=== PATIENT | male | born 1980 | race African-American/Black ===

== ENCOUNTER 2017-03-22 06:04 | Emergency (ER) | payer SELFPAY ==
[~2017-03-22] VITALS: Ht 175.3 cm; Wt 86.2 kg
[~2017-03-22 06:04] MED LIST: ALBUTEROL SULF8.5 GM INH; AZITHROMYCIN250 MG ORAL; NKM; PROMETHAZINE-C118 M1 ORAL
[2017-03-22 06:10] VITALS: BP 136/86
[2017-03-22] MEDS ORDERED: Tetracaine 0.5% Opth Soln ONE (06:28)
--- NOTE | 2017-03-22 06:29 | Emergency Room Report ---
History of Present Illness General Chief Complaint: Eye Problems Source: Patient Present Illness HPI Patient presents with a complaint of scratch sensation in the left eye Patient states that he was hit in the eye 2 days ago he had some mild pain to the eye itself that appear to have improved However this morning upon awaking he felt a scratch sensation in the lower aspect Denies any change in vision Denies any headache Initially after the injury he had some mild photophobia sensation None at this time Allergies: Coded Allergies: No Known Allergies (Unverified , 10/09/15) Patient History Past Medical History: see triage record Pertinent Family History: none Reviewed Nursing Documentation: PMH: Agreed, PSxH: Agreed Nursing Documentation-PMH Past Medical History: No Stated History Review of Systems All Other Systems: negative except mentioned in HPI Physical Exam Vital Signs Date Time Temp Pulse Resp B/P Pulse Ox O2 Delivery O2 Flow Rate FiO2 03/22/17 06:06 97.3 50 18 136/86 98 Room Air Sp02 EP Interpretation: reviewed, normal General Appearance: well appearing, no apparent distress Head: normocephalic, atraumatic Eyes: left eye other - Mild erythematous hue injected conjunctiva on the left. No hyphema, bilateral eye EOMI, bilateral eye PERRL ENT: normal pharynx, no angioedema Neck: full range of motion, supple Respiratory: lungs clear Cardiovascular #1: regular rate, rhythm, no edema Gastrointestinal: non tender, soft Musculoskeletal: normal inspection Neurologic: alert, oriented x3, responsive Skin: normal color, no rash Lymphatic: no adenopathy Medical Decision Making Diagnostic Impression: Primary Impression: Corneal abrasion ER Course Patient had tetracaine along with fluorescein staining performed on the eye Does reveal a small abrasion likely from scratch approximately 5:00 region There was some uptake Otherwise no obvious dendritic lesions Patient has done significantly better implying superficial pathology Patient was placed on antibiotics and will have close outpatient followup Last Vital Signs Date Time Temp Pulse Resp B/P Pulse Ox O2 Delivery O2 Flow Rate FiO2 03/22/17 06:06 97.3 50 18 136/86 98 Room Air Status: improved Disposition: HOME, SELF-CARE Condition: Improved Scripts Ibuprofen* (MOTRIN*) 600 Mg Tablet 600 MG ORAL Q8H Y for For Pain, #20 TAB 0 Refills Prov: IFTIKHAR TAYLOR D.O. 03/22/17 Gentamicin Sulfate* (GENTAMICIN SULFATE*) 3.5 Gm Oint...g. 3.5 GM OP TID for 7 Days, GM Prov: IFTIKHAR TAYLOR D.O. 03/22/17 Additional Instructions: Patient is provided with the discharge instructions notified to follow up with primary doctor in the next 2-3 days otherwise return to the er with any worsening symptoms. Please note that this report is being documented using [employer] technology. This can lead to erroneous entry secondary to incorrect interpretation by the dictating instrument. IFTIKHAR TAYLOR D.O. Mar 22, 2017 06:29
[2017-03-22] MEDS ORDERED: Fluorescein Strips OP ONE (06:30)
[2017-03-22] MEDS ORDERED: Proparacaine 0.5% Opth Soln 15ml BOTH EYES ONE (06:30)
[2017-03-22] MEDS ORDERED: Tetracaine 0.5% Opth Soln LEFT EYE ONE (06:30)
[2017-03-22] MEDS ORDERED: GENTAMICIN SUL3.5 GM OP (06:39)
[2017-03-22] MEDS ORDERED: IBUPROFEN600 MG ORAL (06:39)
[2017-03-22 06:43] VITALS: BP 136/86
== END 2017-03-22 06:45 | disposition home or self-care (01) ==
LOC: EMR 06:29
DX: S05.02XA Injury of conjunctiva and corneal abrasion without foreign body, left eye, initial encounter (principal); W22.8XXA Striking against or struck by other objects, initial encounter; Y92.89 Other specified places as the place of occurrence of the external cause
CPT/HCPCS: 99282

== ENCOUNTER 2018-06-21 12:53 | Emergency (ER) | payer OTHER ==
[~2018-06-21] VITALS: Ht 175.3 cm; Wt 98.9 kg
[~2018-06-21 12:53] MED LIST changes: +GENTAMICIN SUL3.5 GM OP; +IBUPROFEN600 MG ORAL
--- NOTE | 2018-06-21 13:56 | Emergency Room Report ---
History of Present Illness General Chief Complaint: Upper Extremity Injury Source: Patient Present Illness HPI 37-year-old male presents to the emergency department complaining of 4 out of 10 in severity pain localized to the left hand sustained last week while boxing practice. Patient reports that he has had symptoms similar before and usually get better after rest and ice however his symptoms have not improved. Patient reports pain is exacerbated with moving his fingers to make a fist. Asked is only relieving factor. Patient reports she took some Vicodin 5am this morning which reduced his pain to from 8/10 in severity to 4 out of 10 in severity. Patient denies open wounds or bleeding. Denies numbness tingling or loss of sensation or gross motor movements of the extremities, incontinence of bowel or bladder. Denies CP, Palpitations, LOC, AMS, dizziness, Changes in Vision, weakness or a sudden severe headache. Allergies: Coded Allergies: No Known Allergies (Unverified , 10/09/15) Patient History Past Medical History: see triage record Past Surgical History: none Pertinent Family History: none Reviewed Nursing Documentation: PMH: Agreed; PSxH: Agreed Nursing Documentation-PMH Past Medical History: No Stated History Review of Systems All Other Systems: negative except mentioned in HPI Physical Exam Vital Signs Date Time Temp Pulse Resp B/P (MAP) Pulse Ox O2 Delivery O2 Flow Rate FiO2 06/21/18 12:58 98.1 68 21 136/57 98 Room Air Sp02 EP Interpretation: reviewed, normal General Appearance: no apparent distress, alert, GCS 15, non-toxic Head: normocephalic, atraumatic Eyes: bilateral eye normal inspection, bilateral eye PERRL ENT: hearing grossly normal, normal voice Neck: full range of motion Respiratory: lungs clear, normal breath sounds, speaking full sentences Cardiovascular #1: regular rate, rhythm, normal capillary refill Musculoskeletal: back normal, gait/station normal, normal range of motion, tender - TTP to the mid-dorsal left hand, Stiffness with ROM, mild swelling noted as well. no snuff box ttp. pt. is NVI. Neurologic: alert, oriented x3, responsive, motor strength/tone normal, sensory intact, normal gait, speech normal, grossly normal Psychiatric: judgement/insight normal Skin: normal color, no rash, warm/dry, well hydrated Medical Decision Making PA Attestation Dr. unger is my supervising Physician whom patient management has been discussed with. Diagnostic Impression: Primary Impression: Contusion of hand, left Qualified Codes: S60.222A - Contusion of left hand, initial encounter Additional Impression: Hand pain, left ER Course 37-year-old male presents to the emergency department complaining of 4 out of 10 in severity pain localized to the left hand sustained last week while boxing practice. Patient reports that he has had symptoms similar before and usually get better after rest and ice however his symptoms have not improved. Patient reports pain is exacerbated with moving his fingers to make a fist. Asked is only relieving factor. Patient reports she took some Vicodin 5am this morning which reduced his pain to from 8/10 in severity to 4 out of 10 in severity. Patient denies open wounds or bleeding. Denies numbness tingling or loss of sensation or gross motor movements of the extremities, incontinence of bowel or bladder. Denies CP, Palpitations, LOC, AMS, dizziness, Changes in Vision, weakness or a sudden severe headache. Ddx considered but are not limited to Fracture, dislocation, contusion, Sprain/ Strain/Spasm. Vital signs: are WNL, pt. is afebrile H&PE are most consistent with musculoskeletal injury will perform imaging to r/ o fractures/dislocations. ORDERS: - X-ray Left Hand 3 views - negative for fx, Dislocation, or significant soft tissue injury, per preliminary read in ED, and signed by MANPREET Elizabeth , my supervising physician has reviewed, and agrees with my interpretation. ED INTERVENTIONS: Volar hand and wrist Splint applied to the left hand by video game repair technician. Pt. remains neurovascularly intact. -Tylenol PO DISCHARGE: At this time pt. is stable for d/c to home. Will provide printed patient care instructions, and any necessary prescriptions. Care plan and follow up instructions have been discussed with the patient prior to discharge. Other X-Ray Diagnostic Results Other X-Ray Diagnostic Results : X-Ray ordered: Left hand # of Views/Limited Vs Complete: 3 View Indication: Pain EP Interpretation: Yes MANPREET Xray: Interpretation reviewed, by supervising MD, and agrees with findings. Interpretation: no dislocation, no soft tissue swelling, no fractures Impression: No acute disease Electronically Signed by: Mony Elizabeth PA-C Last Vital Signs Date Time Temp Pulse Resp B/P (MAP) Pulse Ox O2 Delivery O2 Flow Rate FiO2 06/21/18 12:58 98.1 68 21 136/57 98 Room Air Disposition: HOME, SELF-CARE Condition: Stable Scripts Ibuprofen* (MOTRIN*) 600 Mg Tablet 600 MG ORAL THREE TIMES A DAY, #20 TAB 0 Refills Prov: Mony Elizabeth 06/21/18 Referrals: [facility],REFERR[facility] (PCP) Patient Instructions: Hand Contusion, [id number] Additional Instructions: Take medications as directed. Follow up with an [employer] ATTENDANT in 3-5 days, even if your symptoms have resolved. If symptoms persist further imaging and evaluation may be required at the discretion of your PCP or Ortho Specialist. --Please review list of primary care clinics, if you do not already have a primary care provider who can give you an Orthopedic Referral. Return sooner to ED if new symptoms occur, or current symptoms become worse. - Please note that this Emergency Department Report was dictated using [employer] technology software, occasionally this can lead to erroneous entry secondary to interpretation by the dictation equipment. Mony Elizabeth Jun 21, 2018 13:56
[2018-06-21 14:09] VITALS: BP 123/61
--- NOTE | 2018-06-21 14:24 | Diagnostic Imaging Report ---
EXAM: XR Left Hand Complete, 3 or More Views CLINICAL HISTORY: PAIN TECHNIQUE: Frontal, lateral and oblique views of the left hand. COMPARISON: No relevant prior studies available. FINDINGS: Bones/joints: Chronic deformity of the right fifth metacarpal. No acute fracture. No dislocation. Soft tissues: Unremarkable. No radiopaque foreign body. 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 No acute fracture. No dislocation.
[2018-06-21] MEDS ORDERED: IBUPROFEN600 MG ORAL (14:42)
[2018-06-21] MEDS ORDERED: Acetaminophen 500mg (ES) tab ORAL ONE (14:45)
[2018-06-21 14:51] VITALS: BP 123/61
== END 2018-06-21 14:51 | disposition home or self-care (01) ==
LOC: EMR 13:25
DX: S60.222A Contusion of left hand, initial encounter (principal); W51.XXXA Accidental striking against or bumped into by another person, initial encounter; Y93.71 Activity, boxing; Y92.89 Other specified places as the place of occurrence of the external cause
CPT/HCPCS: 29125; 99283

== ENCOUNTER 2019-03-31 09:38 | Emergency (ER) | payer OTHER ==
[~2019-03-31] VITALS: Ht 175.3 cm; Wt 97.5 kg
--- NOTE | 2019-03-31 09:52 | Emergency Room Report ---
History of Present Illness General Chief Complaint: Upper Extremity Injury Source: Patient Present Illness HPI Disclaimer: Please note that this report is being documented using [employer] technology. This can lead to erroneous entry secondary to incorrect interpretation by the dictating instrument. HPI: 38-year-old [id number] male presents for evaluation of right thumb pain. 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 He cannot recall specific injury though he was sparring recently. He has been keeping it elevated but has not taken any medications. No prior history of gout, pseudogout. Cannot recall any bites, scratches, skin breakdown. Denies any fevers, chills. No pain in the wrist on flexion or extension. Denies numbness or tingling. Otherwise in his usual state of health and denies any fevers, chills, chest pain, shortness of breath, abdominal pain, vomiting. PMH: Previous fractures PSH: Denies Allergies: Denies Social Hx: Denies drug, alcohol or tobacco use Allergies: Coded Allergies: No Known Allergies (Unverified , 10/09/15) Nursing Documentation-PMH Past Medical History: No Stated History Review of Systems All Other Systems: negative except mentioned in HPI Physical Exam Vital Signs Date Time Temp Pulse Resp B/P (MAP) Pulse Ox O2 Delivery O2 Flow Rate FiO2 03/31/19 09:41 98.4 61 16 136/87 (103) 98 Room Air General: Awake and alert, no acute distress HEENT: NC/AT. EOMI. Resp: Normal work of breathing. Skin: Intact. No abrasions, laceration or rash over the exposed skin. There is some mild edema and erythema around the right thumb at the MCPJ extending up to the IPJ MSK: Normal tone and bulk. Moving all extremities. Tenderness, erythema and swelling around the ulnar aspect of the MCP J of the right thumb. No tenderness over the snuffbox. Tenderness extends up to the interphalangeal joint of the right thumb over the ulnar aspect only. Difficulty with flexion extension. Sensation is intact to light touch over the radial and ulnar aspect. There is pain with radial deviation of the thumb. The remainder of the digits are atraumatic, no edema, no erythema, full flexion and extension. Sensation otherwise intact over the volar and dorsal aspect of the hand. No tenderness in the wrist, no edema. Able to flex, extend, pronate, supinate, ulnar and radially deviate. 2+ radial pulses. Cap refill less than 2 seconds Neuro: Awake and alert. Mentating appropriately. Medical Decision Making Diagnostic Impression: Primary Impression: Hand pain Additional Impression: Tendon injury ER Course 38-year-old male presents for evaluation of left thumb pain and swelling. May be a occult fracture of the patient is a boxer with repeated trauma. May also be gout, pseudogout, tendon injury, septic joint however my suspicion for these is less than for acute fracture. Will obtain x-rays of the hand and give ibuprofen for pain. Laboratory Tests Test 03/31/19 11:05 White Blood Count 8.4 K/UL (4.8-10.8) Red Blood Count 4.99 M/UL (4.70-6.10) Hemoglobin 15.4 G/DL (14.2-18.0) Hematocrit 46.5 % (42.0-52.0) Mean Corpuscular Volume 93 FL (80-99) Mean Corpuscular Hemoglobin 30.9 PG (27.0-31.0) Mean Corpuscular Hemoglobin Concent 33.2 G/DL (32.0-36.0) Red Cell Distribution Width 11.2 % (11.6-14.8) L Platelet Count 202 K/UL (150-450) Mean Platelet Volume 8.7 FL (6.5-10.1) Neutrophils (%) (Auto) 49.5 % (45.0-75.0) Lymphocytes (%) (Auto) 35.8 % (20.0-45.0) Monocytes (%) (Auto) 11.8 % (1.0-10.0) H Eosinophils (%) (Auto) 1.9 % (0.0-3.0) Basophils (%) (Auto) 1.0 % (0.0-2.0) Sodium Level 143 MMOL/L (136-145) Potassium Level 3.6 MMOL/L (3.5-5.1) Chloride Level 105 MMOL/L (98-107) Carbon Dioxide Level 27 MMOL/L (21-32) Anion Gap 11 mmol/L (5-15) Blood Urea Nitrogen 14 mg/dL (7-18) Creatinine 1.4 MG/DL (0.55-1.30) H Estimate Glomerular Filtration Rate > 60 mL/min (>60) Glucose Level 98 MG/DL (74-106) Uric Acid 5.3 MG/DL (2.6-7.2) Calcium Level 10.1 MG/DL (8.5-10.1) Reevaluation Time: 12:18 Last Vital Signs Date Time Temp Pulse Resp B/P (MAP) Pulse Ox O2 Delivery O2 Flow Rate FiO2 03/31/19 09:41 98.4 61 16 136/87 (103) 98 Room Air Reevaluation Impression No obvious fracture on x-ray. Lab work otherwise unremarkable. Uric acid within normal limits. At this time, I do believe the patient likely has a tendon injury of the ulnar collateral ligament on the thumb, skiers injury. The entire joint is nontender and therefore I have less suspicious for septic joints. Overall, the patient is stable with normal white count, afebrile and repeatable tenderness over the ulnar aspect of the thumb at the MCP J and the IPJ more consistent with a tendon injury. He will be placed in a thumb spica splint and started on NSAIDs as well as a short course of antibiotics for possible cellulitis. He will be referred to orthopedic surgery. Discussed reasons to return to the emergency department. He understands and agrees with this treatment plan. Disposition: HOME, SELF-CARE Condition: Stable Scripts Cephalexin* (KEFLEX*) 500 Mg Capsule 500 MG ORAL EVERY 12 HOURS, #14 CAP 0 Refills Prov: Piotr Glass MD 03/31/19 Ibuprofen* (MOTRIN*) 600 Mg Tablet 600 MG ORAL Q6H PRN for For Pain, #60 TAB 0 Refills Prov: Piotr Glass MD 03/31/19 Piotr Glass MD Mar 31, 2019 09:52
[2019-03-31 09:59] VITALS: BP 136/87
--- NOTE | 2019-03-31 10:00 | NUR ---
ED Nurse Note:pt. c/o right thumb pain for 2 days no injury reported
[2019-03-31 11:28] LABS: EOSINOPHILS % (AUTO) 1.9 % (0.0-3.0); HEMATOCRIT 46.5 % (42.0-52.0); HEMOGLOBIN 15.4 G/DL (14.2-18.0); LYMPHOCYTES % (AUTO) 35.8 % (20.0-45.0); MEAN CORPUSCULAR VOLUME 93 FL (80-99); MONOCYTES % (AUTO) 11.8 % (1.0-10.0); NEUTROPHILS % (AUTO) 49.5 % (45.0-75.0); PLATELET COUNT 202 K/UL (150-450); RED BLOOD COUNT 4.99 M/UL (4.70-6.10); RED CELL DISTRIBUTION WIDTH 11.2 % (11.6-14.8); WHITE BLOOD COUNT 8.4 K/UL (4.8-10.8)
[2019-03-31 11:41] LABS: ANION GAP 11 mmol/L (5-15); BLOOD UREA NITROGEN 14 mg/dL (7-18); CALCIUM 10.1 MG/DL (8.5-10.1); CARBON DIOXIDE 27 MMOL/L (21-32); CHLORIDE 105 MMOL/L (98-107); CREATININE 1.4 MG/DL (0.55-1.30); POTASSIUM 3.6 MMOL/L (3.5-5.1); SODIUM 143 MMOL/L (136-145)
--- NOTE | 2019-03-31 12:15 | Diagnostic Imaging Report ---
Indication: Injury and pain Technique: 3 views right hand Comparison: none Findings: No acute fractures. No dislocations. The joint spaces are preserved. Impression: Negative
[2019-03-31] MEDS ORDERED: CEPHALEXIN500 MG ORAL (12:16)
[2019-03-31] MEDS ORDERED: IBUPROFEN600 MG ORAL (12:16)
[2019-03-31 12:24] VITALS: BP 136/87
--- NOTE | 2019-03-31 12:31 | NUR ---
ER DISCHARGE NOTE:splint placed on right hand Patient is cleared to be discharged per ERMD, pt is aox4, on room air, with stable vital signs. pt was given dc and prescription instructions, pt was able to verbalize understanding, pt is able to ambulate with steady gait. pt took all belongings.
== END 2019-03-31 12:32 | disposition home or self-care (01) ==
LOC: EMR 09:57
DX: S66.202A Unspecified injury of extensor muscle, fascia and tendon of left thumb at wrist and hand level, initial encounter (principal); M79.641 Pain in right hand; X58.XXXA Exposure to other specified factors, initial encounter; Y92.9 Unspecified place or not applicable
CPT/HCPCS: 29125; 36415; 80048; 84550; 85025; 99283

== ENCOUNTER 2019-11-17 07:32 | Emergency (ER) | payer OTHER ==
[~2019-11-17] VITALS: Ht 175.3 cm; Wt 90.7 kg
[~2019-11-17 07:32] MED LIST changes: +CEPHALEXIN500 MG ORAL
[2019-11-17 08:00] VITALS: BP 129/78
[2019-11-17] MEDS ORDERED: CLOTRIMAZOLE15 GM TOPIC (08:00)
--- NOTE | 2019-11-17 08:04 | Emergency Room Report ---
History of Present Illness General Chief Complaint: Skin Rash/Abscess Source: Patient Present Illness HPI Disclaimer: Please note that this report is being documented using [employer] technology. This can lead to erroneous entry secondary to incorrect interpretation by the dictating instrument. HPI: 38-year-old male presents for evaluation of rash. He has been having an itchy and scaly rash around his groin for the past week. Denies pain just reports discomfort from itching. He walks a lot and has been applying hydrocortisone cream without significant improvement. Denies skin sloughing, weeping, vesicles. Denies any trauma to the area. Denies any bleeding from the meatus, urethral discharge, testicular pain or other symptoms at this time. Allergies: Coded Allergies: No Known Allergies (Unverified , 10/09/15) COVID-19 Screening Contact w/high risk pt: No Recent Travel to affected area: No Experienced COVID-19 symptoms?: No Nursing Documentation-PMH Past Medical History: No Stated History Review of Systems All Other Systems: negative except mentioned in HPI Physical Exam Vital Signs Date Time Temp Pulse Resp B/P (MAP) Pulse Ox O2 Delivery O2 Flow Rate FiO2 11/17/19 07:56 98.1 54 14 131/84 (100) 99 Room Air General: Awake and alert, no acute distress HEENT: NC/AT. EOMI. Resp: Normal work of breathing Skin: Intact. There is an erythematous, nonraised, nontender nonfluctuant rash around the patient's groin extending over the medial thighs. Raised and scaly borders. No skin breakdown. No bleeding. No purulence, no fluctuance, no vesicles. Negative Nikolsky. MSK: Normal tone and bulk. Moving all extremities. No obvious deformity. Neuro: Awake and alert. Mentating appropriately Medical Decision Making Diagnostic Impression: Primary Impression: Tinea cruris ER Course 38-year-old male presents for evaluation of 1 week worsening rash around the groin region. Differential includes was not limited to tinea infection, dermatitis, atopic dermatitis, folliculitis, cellulitis, abscess. Most consistent with a tinea cruris. Patient is been using hydrocortisone cream without improvement thus far. Will try clotrimazole cream topical for 1 month or if symptoms respond we will continue treatment for 1 week after symptoms are resolved. We discussed need for close monitoring and follow-up if symptoms fail to improve or suddenly worsen. Overall well-appearing and nontoxic. Do not believe he requires emergent labs or imaging at this time. He is instructed to return to the emergency department should his symptoms worsen or fail to improve. He understands and agrees to treatment plan will be discharged home. Last Vital Signs Date Time Temp Pulse Resp B/P (MAP) Pulse Ox O2 Delivery O2 Flow Rate FiO2 11/17/19 07:56 98.1 54 14 131/84 (100) 99 Room Air Disposition: HOME, SELF-CARE Condition: Stable Scripts Clotrimazole* (LOTRIMIN*) 15 Gm Cream..g. 1 APPLIC TOPIC TWICE A DAY for 28 Days, #60 GM Prov: Piotr Glass MD 11/17/19 Referrals: [facility],REFERR[facility] (PCP) [facility] Patient Instructions: Jock Itch Additional Instructions: Apply the medicated cream as instructed twice daily for 1 week after the rash resolves. If your symptoms fail to improve return to the emergency department for reevaluation. Piotr Glass MD Nov 17, 2019 08:04
[2019-11-17 08:10] VITALS: BP 127/88
== END 2019-11-17 08:10 | disposition home or self-care (01) ==
LOC: EMR 07:55
DX: B35.6 Tinea cruris (principal)
CPT/HCPCS: 99282

== ENCOUNTER 2020-01-18 02:46 | Emergency (ER) | payer OTHER ==
[~2020-01-18] VITALS: Ht 180.3 cm; Wt 72.6 kg
[~2020-01-18 02:46] MED LIST changes: +CLOTRIMAZOLE15 GM TOPIC
--- NOTE | 2020-01-18 02:57 | Emergency Room Report ---
History of Present Illness General Chief Complaint: Abdominal Pain Source: Patient Present Illness HPI Patient is a 39-year-old male denies any significant past medical history who presents to the ER complaining of abdominal pain. Patient states that he ate [employer] local at around 3 PM and went to sleep and woke up feeling generalized abdominal pain and bloating. Patient also complains of nonbilious nonbloody vomitus as well as nonbloody diarrhea. He denies anybody else being sick. He denies any fever or chills. He denies any chest pain or shortness of breath. Allergies: Coded Allergies: No Known Allergies (Unverified , 10/09/15) COVID-19 Screening Contact w/high risk pt: No Recent Travel to affected area: No Experienced COVID-19 symptoms?: No Patient History Social History: Reports: smoking; Denies: alcohol use, drug use Reviewed Nursing Documentation: PMH: Agreed; PSxH: Agreed Nursing Documentation-PMH Past Medical History: No Stated History Review of Systems All Other Systems: negative except mentioned in HPI Physical Exam Sp02 EP Interpretation: reviewed, normal General Appearance: no apparent distress, alert, GCS 15, non-toxic Head: normocephalic, atraumatic Eyes: bilateral eye normal inspection, bilateral eye PERRL ENT: hearing grossly normal, normal pharynx, no angioedema, normal voice Neck: full range of motion, supple/symm/no masses Respiratory: chest non-tender, lungs clear, normal breath sounds, speaking full sentences Cardiovascular #1: regular rate, rhythm, no edema Gastrointestinal: other - Periumbilical abdominal pain with no guarding or rebound Rectal: deferred Genitourinary: no CVA tenderness Musculoskeletal: normal range of motion, no calf tenderness Neurologic: alert, motor strength/tone normal, oriented x3, sensory intact, responsive, speech normal Psychiatric: no suicidal/homicidal ideation Skin: no rash Lymphatic: no adenopathy Medical Decision Making Diagnostic Impression: Primary Impression: Pancreatitis Additional Impressions: Acute renal failure Hypokalemia Leukocytosis Drug abuse ER Course Patient's vital signs are stable. Patient's labs demonstrate mild leukocytosis. Patient has elevated lipase. Patient's creatinine elevated to 1.6. Patient's potassium is 3.3. Patient's drug screen positive for amphetamines and THC. Patient given IV fluids, Zofran, Protonix and fentanyl. On reevaluation patient states that his symptoms have improved. Patient CT consistent with enteritis. Patient discharged with prescription for Zofran, tramadol and Pepcid. After discussing risks and benefits of further diagnostics , treatment plans, as well as indications for and risks of admission, the patient is agreeable to being discharged home. I have explained that their evaluation and treatment in the emergency department today is an important step towards them achieving better health but that their evaluation today is not intended to replace further evaluation and treatment by a physician in their local clinic. I have explained that while the current findings suggest no immediate life threatening emergency they will require further evaluation and treatment by a physician of their choice in their area. They understand that it will be necessary for them to review the final reports of their ED visit with their clinic physician. We have reviewed indications for return to the Emergency Department. I have explained that additional time may need to pass and/or additional testing as an outpatient may be necessary before a definitive diagnosis can be made. They tell me they are willing to follow up as instructed within the timeframe I recommend. They appear to understand what we discussed. Additionally they understand that if they are unable to be seen by an outpatient physician they are welcome, and in fact should, return to the Emergency Department for a repeat evaluation. The patient is stable at time of discharge. Laboratory Tests Test 01/18/20 03:14 White Blood Count 11.1 K/UL (4.8-10.8) H Red Blood Count 4.94 M/UL (4.70-6.10) Hemoglobin 15.4 G/DL (14.2-18.0) Hematocrit 47.7 % (42.0-52.0) Mean Corpuscular Volume 97 FL (80-99) Mean Corpuscular Hemoglobin 31.2 PG (27.0-31.0) H Mean Corpuscular Hemoglobin Concent 32.3 G/DL (32.0-36.0) Red Cell Distribution Width 12.0 % (11.6-14.8) Platelet Count 184 K/UL (150-450) Mean Platelet Volume 9.0 FL (6.5-10.1) Neutrophils (%) (Auto) 75.9 % (45.0-75.0) H Lymphocytes (%) (Auto) 15.7 % (20.0-45.0) L Monocytes (%) (Auto) 6.9 % (1.0-10.0) Eosinophils (%) (Auto) 1.0 % (0.0-3.0) Basophils (%) (Auto) 0.5 % (0.0-2.0) Urine Color Yellow Urine Appearance Clear Urine pH 5 (4.5-8.0) Urine Specific Roland 1.025 (1.005-1.035) Urine Protein 2+ (NEGATIVE) H Urine Glucose (UA) Negative (NEGATIVE) Urine Ketones 1+ (NEGATIVE) H Urine Blood Negative (NEGATIVE) Urine Nitrite Negative (NEGATIVE) Urine Bilirubin Negative (NEGATIVE) Urine Urobilinogen 4 MG/DL (0.0-1.0) H Urine Leukocyte Esterase 1+ (NEGATIVE) H Urine RBC 0-2 /HPF (0 - 0) H Urine WBC 0-2 /HPF (0 - 0) Urine Squamous Epithelial Cells None /LPF (NONE/OCC) Urine Bacteria Few /HPF (NONE) Sodium Level 140 MMOL/L (136-145) Potassium Level 3.3 MMOL/L (3.5-5.1) L Chloride Level 102 MMOL/L (98-107) Carbon Dioxide Level 28 MMOL/L (21-32) Anion Gap 10 mmol/L (5-15) Blood Urea Nitrogen 10 mg/dL (7-18) Creatinine 1.6 MG/DL (0.55-1.30) H Estimated Glomerular Filtration Rate 58.1 mL/min (>60) Glucose Level 117 MG/DL (74-106) H Calcium Level 9.3 MG/DL (8.5-10.1) Magnesium Level 2.0 MG/DL (1.8-2.4) Total Bilirubin 0.4 MG/DL (0.2-1.0) Aspartate Amino Transferase (AST) 25 U/L (15-37) Alanine Aminotransferase (ALT) 44 U/L (12-78) Alkaline Phosphatase 83 U/L (46-116) Total Protein 8.0 G/DL (6.4-8.2) Albumin 4.2 G/DL (3.4-5.0) Globulin 3.8 g/dL Albumin/Globulin Ratio 1.1 (1.0-2.7) Lipase 499 U/L (73-393) H Urine Opiates Screen Negative (NEGATIVE) Urine Barbiturates Screen Negative (NEGATIVE) Phencyclidine (PCP) Screen Negative (NEGATIVE) Urine Amphetamines Screen Positive (NEGATIVE) H Urine Benzodiazepines Screen Negative (NEGATIVE) Urine Cocaine Screen Negative (NEGATIVE) Urine Marijuana (THC) Screen Positive (NEGATIVE) H Condition: Stable Scripts Tramadol Hcl* (ULTRAM*) 50 Mg Tablet 50 MG ORAL Q6H PRN for For Pain, #12 TAB 0 Refills Prov: Miriam Blanco M.D. 01/18/20 Famotidine* (Pepcid 20mg tablet*) 20 Mg Tablet 20 MG ORAL DAILY, #30 TAB 0 Refills Prov: Miriam Blanco M.D. 01/18/20 Ondansetron* (ZOFRAN*) 4 Mg Tablet 4 MG ORAL Q8HR PRN for Nausea & Vomiting, #14 TAB Prov: Miriam Blanco M.D. 01/18/20 Additional Instructions: The patient was provided with discharge instructions, notified to follow-up with a primary care doctor and or specialist in the next 24-48 hours, and to return to the ED if they have worsening of their symptoms. Please note that this report is being documented using [email or web address] technology. This can lead to erroneous entry secondary to incorrect interpretation by the dictating instrument. Miriam Blanco M.D. Jan 18, 2020 02:57
[2020-01-18 03:00] VITALS: BP 126/81
[2020-01-18] MEDS ORDERED: fentaNYL 100 mcg/2 mL IV ONE (03:00)
[2020-01-18] MEDS ORDERED: Pantoprazole Inj IVP ONE (03:00)
--- NOTE | 2020-01-18 03:00 | NUR ---
ED Nurse Note: Pt walked into ED from home for c/o abdominal pain since 1500 yesterday. Pt states he ate [employer] yesterday and has now had the abdominal pain with 3 episodes of N/V/D. Pt is aaox4, breathing is normal and unlabored. No cough or SOB noted. IV line established, blood drawn and sent to lab along with urine sample.
[2020-01-18 03:11] LABS: BASOPHILS % (AUTO) 0.5 % (0.0-2.0); HEMATOCRIT 47.7 % (42.0-52.0); HEMOGLOBIN 15.4 G/DL (14.2-18.0); LYMPHOCYTES % (AUTO) 15.7 % (20.0-45.0); MEAN CORPUSCULAR VOLUME 97 FL (80-99); MONOCYTES % (AUTO) 6.9 % (1.0-10.0); NEUTROPHILS % (AUTO) 75.9 % (45.0-75.0); PLATELET COUNT 184 K/UL (150-450); RED BLOOD COUNT 4.94 M/UL (4.70-6.10); WHITE BLOOD COUNT 11.1 K/UL (4.8-10.8)
[2020-01-18 03:19] LABS: APPEARANCE,URINE CLEAR; BILIRUBIN, URINE NEGATIVE (NEGATIVE); GLUCOSE, URINE (UA) NEGATIVE (NEGATIVE); KETONES,URINE 1+ (NEGATIVE); LEUKOCYTE ESTERASE ,URINE 1+ (NEGATIVE); NITRITE,URINE NEGATIVE (NEGATIVE); PH,URINE 5 (4.5-8.0); PROTEIN,URINE 2+ (NEGATIVE); UROBILINOGEN,URINE 4 MG/DL (0.0-1.0)
[2020-01-18 03:32] LABS: ANION GAP 10 mmol/L (5-15); BLOOD UREA NITROGEN 10 mg/dL (7-18); CALCIUM 9.3 MG/DL (8.5-10.1); CARBON DIOXIDE 28 MMOL/L (21-32); CHLORIDE 102 MMOL/L (98-107); CREATININE 1.6 MG/DL (0.55-1.30); POTASSIUM 3.3 MMOL/L (3.5-5.1); SODIUM 140 MMOL/L (136-145)
[2020-01-18 03:35] LABS: COLOR,URINE YELLOW
[2020-01-18 03:37] LABS: ALANINE AMINOTRANSFERASE 44 U/L (12-78); ALBUMIN 4.2 G/DL (3.4-5.0); ALBUMIN/GLOBULIN RATIO 1.1 (1.0-2.7); ALKALINE PHOSPHATASE 83 U/L (46-116); ASPARTATE AMINO TRANSFERASE 25 U/L (15-37); BILIRUBIN,TOTAL 0.4 MG/DL (0.2-1.0)
--- NOTE | 2020-01-18 05:02 | Diagnostic Imaging Report ---
EXAM: CT Abdomen and Pelvis Without Intravenous Contrast CLINICAL HISTORY: Abdominal pain. TECHNIQUE: Axial computed tomography images of the abdomen and pelvis without intravenous contrast. CTDI is 9 mGy and DLP is 515 mGy-cm. One or more of the following dose reduction techniques were used: automated exposure control, adjustment of the mA and/or kV according to patient size, use of iterative reconstruction technique. COMPARISON: No relevant prior studies available. FINDINGS: Lung bases: Unremarkable. No mass. No consolidation. ABDOMEN: Liver: Unremarkable. Gallbladder and bile ducts: Unremarkable. No calcified stones. No ductal dilation. Pancreas: Unremarkable. No ductal dilation. Spleen: Unremarkable. No splenomegaly. Adrenals: Unremarkable. No mass. Kidneys and ureters: Unremarkable. No obstructing stones. No hydronephrosis. Stomach and bowel: Mild concentric wall thickening of mid to distal small bowel loops with trace perienteric infiltrative changes and mesenteric edema. Findings suggestive of infectious/inflammatory enterocolitis. No bowel wall pneumatosis or portal venous gas. No evidence of bowel obstruction. PELVIS: Appendix: No findings to suggest acute appendicitis. Bladder: Unremarkable. No stones. Reproductive: Unremarkable as visualized. ABDOMEN and PELVIS: Intraperitoneal space: Unremarkable. No free air. No significant fluid collection. Bones/joints: No acute fracture. No dislocation. Soft tissues: Unremarkable. Vasculature: Unremarkable. No abdominal aortic aneurysm. Lymph nodes: Unremarkable. No enlarged lymph nodes. IMPRESSION: Concentric small bowel wall thickening likely secondary to infectious/inflammatory enterocolitis. Normal appendix. No bowel obstruction. No evidence of nephrolithiasis or obstructive uropathy.
[2020-01-18] MEDS ORDERED: ZOFRAN4 M3 ORAL (05:04)
[2020-01-18] MEDS ORDERED: FAMOTIDINE20 MG ORAL (05:04)
[2020-01-18] MEDS ORDERED: TRAMADOL HCL50 MG ORAL (05:04)
[2020-01-18 05:10] VITALS: BP 118/80
--- NOTE | 2020-01-18 05:10 | NUR ---
ER DISCHARGE NOTE: Patient is cleared to be discharged per ERMD, pt is aox4, on room air, with stable vital signs. pt was given dc and prescription instructions, pt was able to verbalize understanding, pt id band and iv site removed without complications. pt is able to ambulate with steady gait. pt took all belongings.
== END 2020-01-18 05:10 | disposition home or self-care (01) ==
LOC: EMR 03:20
DX: K85.90 Acute pancreatitis without necrosis or infection, unspecified (principal); N17.9 Acute kidney failure, unspecified; E87.6 Hypokalemia; D72.829 Elevated white blood cell count, unspecified; F19.10 Other psychoactive substance abuse, uncomplicated
CPT/HCPCS: 36415; 74176; 80053; 80307; 81003; 83690; 83735; 85025; 96361; 96374; 96375; J2405; J3010; J7030; S0164; Z7502; 99284; J8499